=== PATIENT | female | born 1940 | race African-American/Black ===

== ENCOUNTER 2018-08-31 07:04 | Emergency (ER) | payer MEDICARE, BC ==
[~2018-08-31] VITALS: Ht 165.1 cm; Wt 68.0 kg
[~2018-08-31 07:04] MED LIST: AMLO1TAB36 PO; HYDR-519 PO; INSNOV SUBCUT; INSU100C11 SQ; LISI2.5T47 PO; PROIN3 IH
[2018-08-31] MEDS ORDERED: MORPHINE SULFATE 4 MG/ML CPJ (NOT FOR IM USE) IV STA (07:50)
[2018-08-31] MEDS ORDERED: SODIUM CHLORIDE 0.9% 1,000 ML IV ONE (07:50)
[2018-08-31] MEDS ORDERED: ONDANSETRON HCL 4MG/2ML INJ IV STA (07:50)
[2018-08-31 08:16] LABS: BASOPHILS % 1.1 % (0.0-2.0); EOSINOPHILS % 3.7 % (0.0-5.0); HEMATOCRIT. 36.4 % (36.0-48.0); LYMPHOCYTES % 17.3 % (20.0-50.0); MEAN CORPUSCULAR HEMOGLOBIN 31.2 pg (28.0-32.0); MEAN CORPUSCULAR VOLUME 94.9 fL (81.0-99.0); MEAN PLATELET VOLUME 8.6 fl (7.4-10.4); MONOCYTES % 6.2 % (2.0-8.0); NEUTROPHILS % 71.7 % (40.0-76.0); PLATELET 261 x1000/uL (130-400); RED BLOOD CELL COUNT 3.83 mill/uL (4.2-5.4); RED CELL DISTRIBUTION WIDTH 13.3 % (11.6-14.6)
[2018-08-31 08:20] LABS: CHLORIDE 107 mEq/L (98-107)
[2018-08-31 08:21] LABS: PROTHROMBIN TIME 10.5 sec (9.1-11.1)
[2018-08-31 09:45] LABS: CLARITY URINE CLEAR (CLEAR); COLOR URINE YELLOW (YELLOW); KETONES URINE NEGATIVE (NEGATIVE); LEUKOCYTE ESTERASE URINE NEGATIVE (NEGATIVE); NITRITE URINE NEGATIVE (NEGATIVE); OCCULT BLOOD URINE NEGATIVE (NEGATIVE); PH URINE 7.5 (4.5-8.0); PROTEIN URINE 1+ (NEGATIVE); SPECIFIC GRAVITY URINE 1.008 (1.005-1.030); UROBILINOGEN URINE 0.2 E.U./dL (0.2-1.0)
[2018-08-31] MEDS ORDERED: DIAZEPAM 2 MG TABLET PO ONE (10:45)
[2018-08-31 12:00] VITALS: BP 203/89
== END 2018-08-31 12:14 | disposition home or self-care (01) ==
LOC: ER 07:16
DX: M54.5 Low back pain (principal); R10.32 Left lower quadrant pain; E11.9 Type 2 diabetes mellitus without complications; I10 Essential (primary) hypertension; Z90.49 Acquired absence of other specified parts of digestive tract; Z96.649 Presence of unspecified artificial hip joint; Z79.4 Long term (current) use of insulin; Z79.899 Other long term (current) drug therapy
CPT/HCPCS: 36415; 74176; 80053; 81003; 83690; 85025; 85610; 96374; 96375; 99285; J2270; J2405; J7030

== ENCOUNTER 2018-09-05 21:44 | Inpatient (IN) | payer MEDICARE, BC, MEDICAID ==
[~2018-09-05] VITALS: Ht 162.6 cm; Wt 64.7 kg
[2018-09-05 22:00] VITALS: BP 205/85
[2018-09-05 22:20] VITALS: BP 205/85
[2018-09-06] VITALS (7 sets, daily range): BP systolic 123–197; BP diastolic 55–79
[2018-09-06] MEDS ORDERED: ONDANSETRON HCL 4MG/2ML INJ IV PRN (00:15)
[2018-09-06] MEDS ORDERED: DEXTROSE 50% WATER 50ML SYRINGE IV PRN (00:15)
[2018-09-06] MEDS ORDERED: OXYCODONE HCL 10MG TABLET SR 12HR PO PRN (00:15)
[2018-09-06] MEDS: AMLODIPINE 10MG TABLET PO SCH ×2 (01:04→10:35)
[2018-09-06] MEDS: ZOLPIDEM TARTRATE 5MG TABLET PO PRN ×2 (02:31→21:42)
[2018-09-06] MEDS ORDERED: OXYC-662 PO (04:40)
[2018-09-06] MEDS ORDERED: CYCL5TAB PO (04:40)
[2018-09-06] MEDS: BLOOD SUGAR DIAGNOSTIC STRIP TEST SCH ×4 (06:32→21:50)
[2018-09-06] MEDS: OMEPRAZOLE 20MG CAPSULE EXTENDED RELEASE PO SCH (06:37)
[2018-09-06] MEDS: CYCLOBENZAPRINE 10MG TABLET PO SCH ×3 (06:37→21:35)
[2018-09-06] MEDS: ISOSORB DINIT/HYDRALAZINE HCL 20/37.5MG TABLET PO SCH ×3 (06:37→21:34)
[2018-09-06] MEDS: INSULIN LISPRO 100 UNITS/ML SUBCUT SCH ×4 (06:38→21:49)
[2018-09-06 07:09] LABS: BASOPHILS % 1.2 % (0.0-2.0); EOSINOPHILS % 3.6 % (0.0-5.0); HEMATOCRIT. 35.3 % (36.0-48.0); HEMOGLOBIN. 11.6 g/dL (12.0-16.0); LYMPHOCYTES % 22.4 % (20.0-50.0); MEAN CORPUSCULAR HEMOGLOBIN 30.8 pg (28.0-32.0); MEAN CORPUSCULAR VOLUME 93.4 fL (81.0-99.0); MEAN PLATELET VOLUME 8.8 fl (7.4-10.4); MONOCYTES % 7.9 % (2.0-8.0); NEUTROPHILS % 64.9 % (40.0-76.0); PLATELET 307 x1000/uL (130-400); RED BLOOD CELL COUNT 3.77 mill/uL (4.2-5.4)
[2018-09-06] MEDS ORDERED: PANTOPRAZOLE 40MG DR TABLET PO SCH (07:10)
[2018-09-06 07:33] LABS: CHLORIDE 104 mEq/L (98-107)
[2018-09-06 08:45] LABS: HDL CHOLESTEROL 40 mg/dL (40-59); LDL CHOLESTEROL 112 mg/dL (5-100); TOTAL IRON BINDING CAPACITY 244 ug/dL (250-450)
[2018-09-06] MEDS: HYDRALAZINE HCL 25MG TABLET PO SCH (09:00)
[2018-09-06] MEDS ORDERED: NON FORMULARY PATIENT HOME MED EA PO SCH (09:00)
[2018-09-06] MEDS: CARVEDILOL 12.5MG TABLET PO SCH ×2 (09:00→21:35)
[2018-09-06] MEDS: SPIRONOLACTONE 25MG TABLET PO SCH (10:35)
[2018-09-06] MEDS: OXYCODONE HCL 5MG TABLET PO PRN ×3 (10:42→21:43)
[2018-09-06] MEDS: INSULIN GLARGINE UD 100 UNITS/ML SYR SUBCUT SCH (21:50)
[2018-09-07] VITALS (7 sets, daily range): BP systolic 103–140; BP diastolic 52–78
[2018-09-07] MEDS: OMEPRAZOLE 20MG CAPSULE EXTENDED RELEASE PO SCH (06:07)
[2018-09-07] MEDS: CYCLOBENZAPRINE 10MG TABLET PO SCH ×3 (06:08→20:35)
[2018-09-07] MEDS: ISOSORB DINIT/HYDRALAZINE HCL 20/37.5MG TABLET PO SCH ×3 (06:08→20:36)
[2018-09-07] MEDS: INSULIN LISPRO 100 UNITS/ML SUBCUT SCH ×4 (06:29→20:43)
[2018-09-07] MEDS: BLOOD SUGAR DIAGNOSTIC STRIP TEST SCH ×4 (06:29→20:43)
[2018-09-07] MEDS: HYDRALAZINE HCL 25MG TABLET PO SCH (09:00)
[2018-09-07] MEDS: AMLODIPINE 10MG TABLET PO SCH (09:00)
[2018-09-07] MEDS: SPIRONOLACTONE 25MG TABLET PO SCH (09:00)
[2018-09-07] MEDS: CARVEDILOL 12.5MG TABLET PO SCH (09:00)
[2018-09-07] MEDS ORDERED: MAGNESIUM CITRATE 300ML SOLUTION PO NR (11:00)
[2018-09-07] MEDS ORDERED: BISACODYL 10MG SUPP PR NR (11:00)
[2018-09-07] MEDS ORDERED: NA PHOS,M-B/NA PHOS,DI-BA ENEMA 118ML PR PRN (11:00)
[2018-09-07] MEDS: GABAPENTIN 100MG CAPSULE PO SCH ×2 (12:31→16:53)
[2018-09-07] MEDS: DULOXETINE HCL 60MG DR CAPSULE PO SCH (20:35)
[2018-09-07] MEDS: OXYCODONE HCL 5MG TABLET PO PRN (20:37)
[2018-09-07] MEDS: INSULIN GLARGINE UD 100 UNITS/ML SYR SUBCUT SCH (20:43)
[2018-09-08] VITALS: BP 120/60
[2018-09-08 04:00] VITALS: BP 125/54
[2018-09-08] MEDS: ISOSORB DINIT/HYDRALAZINE HCL 20/37.5MG TABLET PO SCH ×3 (06:10→21:05)
[2018-09-08] MEDS: CYCLOBENZAPRINE 10MG TABLET PO SCH ×2 (06:10→20:37)
[2018-09-08] MEDS: BLOOD SUGAR DIAGNOSTIC STRIP TEST SCH ×4 (06:10→21:00)
[2018-09-08] MEDS: OXYCODONE HCL 5MG TABLET PO PRN (06:20)
[2018-09-08] MEDS: INSULIN LISPRO 100 UNITS/ML SUBCUT SCH ×4 (07:40→21:00)
[2018-09-08 08:00] VITALS: BP 138/61
[2018-09-08] MEDS: FAMOTIDINE 20MG TABLET PO SCH (09:31)
[2018-09-08] MEDS: LIDOCAINE 5% PATCH TOP SCH (09:32)
[2018-09-08] MEDS: AMLODIPINE 10MG TABLET PO SCH (09:32)
[2018-09-08] MEDS: GABAPENTIN 100MG CAPSULE PO SCH (09:32)
[2018-09-08] MEDS: PREGABALIN 50 MG CAPSULE PO SCH ×2 (11:21→20:36)
[2018-09-08] MEDS: CELECOXIB 100MG CAPSULE PO SCH ×2 (11:21→17:51)
[2018-09-08 12:00] VITALS: BP 151/62
[2018-09-08 16:00] VITALS: BP 119/56
[2018-09-08] MEDS ORDERED: MAGNESIUM CITRATE 300ML SOLUTION PO ONE (17:45)
[2018-09-08 20:00] VITALS: BP 107/57
[2018-09-08] MEDS: BISACODYL 10MG SUPP PR SCH (20:37)
[2018-09-08] MEDS: DULOXETINE HCL 60MG DR CAPSULE PO SCH (20:46)
[2018-09-08] MEDS: INSULIN GLARGINE UD 100 UNITS/ML SYR SUBCUT SCH (21:24)
[2018-09-09] VITALS: BP 109/51
[2018-09-09 04:00] VITALS: BP 117/68
[2018-09-09] MEDS: ISOSORB DINIT/HYDRALAZINE HCL 20/37.5MG TABLET PO SCH ×3 (05:59→21:10)
[2018-09-09] MEDS: BLOOD SUGAR DIAGNOSTIC STRIP TEST SCH ×4 (06:51→20:58)
[2018-09-09] MEDS: INSULIN LISPRO 100 UNITS/ML SUBCUT SCH ×4 (06:53→21:15)
[2018-09-09 08:00] VITALS: BP 124/77
[2018-09-09] MEDS: BISACODYL 10MG SUPP PR SCH ×2 (09:00→17:00)
[2018-09-09] MEDS: PREGABALIN 50 MG CAPSULE PO SCH ×2 (09:09→21:10)
[2018-09-09] MEDS: FAMOTIDINE 20MG TABLET PO SCH (09:09)
[2018-09-09] MEDS: CELECOXIB 100MG CAPSULE PO SCH ×2 (09:09→17:33)
[2018-09-09] MEDS: LIDOCAINE 5% PATCH TOP SCH (09:10)
[2018-09-09] MEDS: AMLODIPINE 10MG TABLET PO SCH (09:11)
[2018-09-09] MEDS: OXYCODONE HCL 5MG TABLET PO PRN (09:13)
[2018-09-09] MEDS ORDERED: OXYCODONE HCL 5MG TABLET PO PRN (14:45)
[2018-09-09 16:00] VITALS: BP 131/49
[2018-09-09 20:00] VITALS: BP 138/57
[2018-09-09] MEDS: DULOXETINE HCL 60MG DR CAPSULE PO SCH (20:52)
[2018-09-09] MEDS: CYCLOBENZAPRINE 10MG TABLET PO SCH (20:53)
[2018-09-09] MEDS: INSULIN GLARGINE UD 100 UNITS/ML SYR SUBCUT SCH (21:15)
[2018-09-10] VITALS: BP 129/49
[2018-09-10 04:00] VITALS: BP 146/51
[2018-09-10] MEDS: ISOSORB DINIT/HYDRALAZINE HCL 20/37.5MG TABLET PO SCH (05:46)
[2018-09-10] MEDS: PREGABALIN 50 MG CAPSULE PO SCH (05:46)
[2018-09-10] MEDS: BLOOD SUGAR DIAGNOSTIC STRIP TEST SCH ×2 (06:12→11:55)
[2018-09-10] MEDS: INSULIN LISPRO 100 UNITS/ML SUBCUT SCH ×2 (06:16→12:00)
[2018-09-10] MEDS: BISACODYL 10MG SUPP PR SCH (08:39)
[2018-09-10] MEDS: FAMOTIDINE 20MG TABLET PO SCH (08:39)
[2018-09-10] MEDS: CELECOXIB 100MG CAPSULE PO SCH (08:40)
[2018-09-10] MEDS: AMLODIPINE 10MG TABLET PO SCH (08:40)
[2018-09-10] MEDS: LIDOCAINE 5% PATCH TOP SCH (08:46)
[2018-09-10 12:00] VITALS: BP 138/65
[2018-09-10 13:35] VITALS: BP 128/79
[2018-09-11 19:06] LABS: ANTI-DNA DOUBLE STRANDED QUANT < 1 IU/mL (0-9)
[2018-09-12 09:35] LABS: ALDOLASE 4.5 U/L (3.3-10.3)
[2018-09-12 19:08] LABS: CYC CITRULLINATED PEP IgG/IgA 8 units (0-19)
[2018-09-15 14:17] LABS: ANA IFA Negative (.)
== END 2018-09-10 15:35 | disposition home or self-care (01) | DRG 552 ==
LOC: 8WST 21:44
PROVIDERS: ADMIT Internal Medicine; ATTEND Internal Medicine
PROC: 3E0U3BZ Introduction of Anesthetic Agent into Joints, Percutaneous Approach (ICD-10-PCS; principal; 2018-09-08)
PROC: 3E0U33Z Introduction of Anti-inflammatory into Joints, Percutaneous Approach (ICD-10-PCS; 2018-09-08)
DX: M48.061 Spinal stenosis, lumbar region without neurogenic claudication (principal); F11.20 Opioid dependence, uncomplicated; M70.71 Other bursitis of hip, right hip; J44.9 Chronic obstructive pulmonary disease, unspecified; M19.90 Unspecified osteoarthritis, unspecified site; M79.7 Fibromyalgia; E11.9 Type 2 diabetes mellitus without complications; I11.9 Hypertensive heart disease without heart failure; M41.9 Scoliosis, unspecified; M54.10 Radiculopathy, site unspecified; K59.03 Drug induced constipation; T40.605A Adverse effect of unspecified narcotics, initial encounter; Z90.710 Acquired absence of both cervix and uterus; Z87.891 Personal history of nicotine dependence; Z90.49 Acquired absence of other specified parts of digestive tract; Y92.89 Other specified places as the place of occurrence of the external cause; Z79.899 Other long term (current) drug therapy; R26.9 Unspecified abnormalities of gait and mobility
CPT/HCPCS: 36415; 71045; 71046; 71250; 72148; 73030; 80061; 80076; 82085; 82550; 82962; 83036; 83540; 83550; 83735; 84439; 84443; 84481; 84550; 85651; 86200; 86225; 86256; 86431; 93005; 93970; 97116; 97162; J1815

== ENCOUNTER 2019-04-02 23:15 | Emergency (ER) | payer MEDICARE, BC, MEDICAID ==
[~2019-04-02] VITALS: Ht 162.6 cm; Wt 68.0 kg
[~2019-04-02 23:15] MED LIST changes: +CYCL5TAB PO; +OXYC-662 PO
[2019-04-03] MEDS ORDERED: SODIUM CHLORIDE 0.9% 1,000 ML IV ONE (01:17)
[2019-04-03] MEDS ORDERED: AMLODIPINE 10MG TABLET PO SCH (01:30)
[2019-04-03] MEDS ORDERED: ACETAMINOPHEN 500MG TABLET PO ONE (01:30)
[2019-04-03 01:48] LABS: HEMATOCRIT. 38.3 % (36.0-48.0); HEMOGLOBIN. 12.8 g/dL (12.0-16.0); MEAN CORPUSCULAR HEMOGLOBIN 31.3 pg (28.0-32.0); MEAN CORPUSCULAR VOLUME 93.6 fL (81.0-99.0); PLATELET 294 x1000/uL (130-400); RED BLOOD CELL COUNT 4.09 mill/uL (4.2-5.4); RED CELL DISTRIBUTION WIDTH 13.8 % (11.6-14.6)
[2019-04-03 02:00] LABS: PARTIAL THROMBOPLASTIN TIME 27.8 sec (23.4-31.0); PROTHROMBIN TIME 10.7 sec (9.6-11.0)
[2019-04-03 02:01] LABS: CHLORIDE 105 mEq/L (98-107)
[2019-04-03 02:09] LABS: BETA HYDROXYBUTYRATE 0.2 mMol/L (0.0-0.3)
[2019-04-03] MEDS ORDERED: LISINOPRIL 10MG TABLET PO SCH (02:30)
[2019-04-03 03:30] LABS: ATYPICAL LYMPHOCYTES 1; PLATELET ESTIMATE NORMAL
[2019-04-03 04:06] LABS: CLARITY URINE CLEAR (CLEAR); COLOR URINE YELLOW (YELLOW); KETONES URINE TRACE (NEGATIVE); LEUKOCYTE ESTERASE URINE NEGATIVE (NEGATIVE); NITRITE URINE NEGATIVE (NEGATIVE); OCCULT BLOOD URINE TRACE (NEGATIVE); PROTEIN URINE 2+ (NEGATIVE); SPECIFIC GRAVITY URINE 1.011 (1.005-1.030)
[2019-04-03 05:55] VITALS: BP 162/65
== END 2019-04-03 05:56 | disposition home or self-care (01) ==
LOC: ER 23:15 → ENRESERV 04-03 03:03 → CANRESERV 04-03 03:03 → CANBEDREQ 04-03 05:41 → ER 04-03 05:56
DX: J06.9 Acute upper respiratory infection, unspecified (principal); I10 Essential (primary) hypertension; E11.9 Type 2 diabetes mellitus without complications; Z90.49 Acquired absence of other specified parts of digestive tract; Z98.890 Other specified postprocedural states; Z96.641 Presence of right artificial hip joint; Z79.4 Long term (current) use of insulin
CPT/HCPCS: 36415; 71045; 80053; 81003; 82010; 83605; 84145; 84484; 85025; 85610; 85730; 87040; 87086; 93005; 96360; 99284; J7030

== ENCOUNTER 2019-06-04 08:17 | Emergency (ER) | payer MEDICARE, BC, MEDICAID ==
[~2019-06-04] VITALS: Ht 162.6 cm; Wt 70.0 kg
[2019-06-04] MEDS ORDERED: MORPHINE SULFATE 4 MG/ML CPJ (NOT FOR IM USE) IV STA (08:33)
[2019-06-04 09:37] LABS: BASOPHILS % 1.3 % (0.0-2.0); EOSINOPHILS % 0.3 % (0.0-5.0); HEMATOCRIT. 37.6 % (36.0-48.0); HEMOGLOBIN. 12.4 g/dL (12.0-16.0); MEAN CORPUSCULAR VOLUME 93.9 fL (81.0-99.0); MEAN PLATELET VOLUME 9.1 fl (7.4-10.4); MONOCYTES % 6.5 % (2.0-8.0); NEUTROPHILS % 82.9 % (40.0-76.0); PLATELET 236 x1000/uL (130-400)
[2019-06-04 09:45] LABS: CHLORIDE 107 mEq/L (98-107)
[2019-06-04] MEDS ORDERED: KETOROLAC 30MG/ML VIAL IV ONE (10:00)
[2019-06-04 11:15] VITALS: BP 142/65
== END 2019-06-04 11:40 | disposition home or self-care (01) ==
LOC: ER 08:17
DX: R52 Pain, unspecified (principal); E11.9 Type 2 diabetes mellitus without complications; M79.7 Fibromyalgia; I10 Essential (primary) hypertension; M19.90 Unspecified osteoarthritis, unspecified site; Z79.4 Long term (current) use of insulin
CPT/HCPCS: 36415; 71045; 80053; 85025; 93005; 96374; 96375; 99284; J1885; J2270

== ENCOUNTER 2025-06-30 21:14 | Emergency (ER) | payer OTHER, BC, MEDICAID ==
[~2025-06-30] VITALS: Ht 167.6 cm; Wt 68.0 kg
[~2025-06-30 21:14] MED LIST changes: -AMLO1TAB36 PO; +APIX2.5T MT; +ATOR10TA69 MT; +CYAN-50 MT; -CYCL5TAB PO; -HYDR-519 PO; +HYDR25TA78 PO; -INSNOV SUBCUT; -INSU100C11 SQ; -LISI2.5T47 PO; +NIFE-32 MT; -OXYC-662 PO; +PANT40TA51 PO
[2025-06-30 21:17] VITALS: O2SAT 97
[2025-06-30 23:38] LABS: BASOPHILS % 0.9 % (0.0-2.0); EOSINOPHILS % 2.2 % (0.0-5.0); HEMATOCRIT. 32.6 % (36.0-48.0); HEMOGLOBIN. 10.5 g/dL (12.0-16.0); LYMPHOCYTES % 16.4 % (20.0-50.0); MEAN PLATELET VOLUME 8.6 fl (7.4-10.4); MONOCYTES % 7.7 % (2.0-8.0); NEUTROPHILS % 72.8 % (40.0-76.0); PLATELET 290 x1000/uL (130-400); RED BLOOD CELL COUNT 3.42 mill/uL (4.2-5.4); RED CELL DISTRIBUTION WIDTH 14.6 % (11.6-14.6)
[2025-06-30 23:50] LABS: INR 1.1
[2025-06-30 23:54] LABS: UREA NITROGEN BLOOD 34 mg/dL (9-23)
[2025-06-30 23:55] LABS: CREATININE 4.6 mg/dL (0.6-1.0)
[2025-06-30 23:58] LABS: TROPONIN I HIGH SENSITIVITY 68 ng/L (3.0-34)
[2025-07-01 00:33] LABS: CLARITY URINE CLEAR (CLEAR); COLOR URINE YELLOW (YELLOW); GLUCOSE URINE NEGATIVE (NEGATIVE); KETONES URINE NEGATIVE (NEGATIVE); LEUKOCYTE ESTERASE URINE 3+ (NEGATIVE); NITRITE URINE NEGATIVE (NEGATIVE); OCCULT BLOOD URINE NEGATIVE (NEGATIVE); PH URINE 5.5 (4.5-8.0); PROTEIN URINE 2+ (NEGATIVE); SPECIFIC GRAVITY URINE 1.008 (1.005-1.030); UROBILINOGEN URINE 0.2 E.U./dL (0.2-1.0)
[2025-07-01 00:38] LABS: RBC URINE 0-2 /hpf (0-2); SQUAMOUS EPITHELIAL CELL URINE RARE /lpf (RARE/1+)
[2025-07-01 00:39] LABS: BACTERIA URINE 1+
[2025-07-01 01:34] LABS: TROPONIN I HIGH SENSITIVITY 59 ng/L (3.0-34)
[2025-07-01 02:30] VITALS: BP 168/57; PULSE 57; RESP 18; TEMP 36.8; O2SAT 96
== END 2025-07-01 02:41 | disposition short-term general hospital (02) ==
LOC: ER 21:14 → CMPBEDREQ 07-01 19:24
DX: S72.002A Fracture of unspecified part of neck of left femur, initial encounter for closed fracture (principal); R51.9 Headache, unspecified; E11.9 Type 2 diabetes mellitus without complications; I10 Essential (primary) hypertension; M79.7 Fibromyalgia; Z96.643 Presence of artificial hip joint, bilateral; Z79.899 Other long term (current) drug therapy; Z79.01 Long term (current) use of anticoagulants; Z59.00 Homelessness unspecified; W18.30XA Fall on same level, unspecified, initial encounter; Y93.89 Activity, other specified; Y92.89 Other specified places as the place of occurrence of the external cause; Y99.8 Other external cause status
CPT/HCPCS: 36415; 71045; 72131; 72192; 73502; 73610; 73700; 80048; 81003; 83880; 84484; 85025; 86850; 86900; 93005; 99285